=== PATIENT | female | born 1995 | race Caucasian/White ===

== ENCOUNTER → 2016-12-06 21:22 | Observation (INO) ==
--- NOTE | 2016-12-06 17:57 | OB/GYN Progress Note ---
Date of Encounter: 12/06/16 Time of Encounter: 17:55 - Assessment and Plan (1) 38 weeks gestation of Current Visit: Yes Status: Acute (2) Back pain affecting in third trimester Current Visit: Yes Status: Acute TTP throughout entire back. Suspect musculoskeletal discomfort of . Will repeat SVE and await UA. (3) Decreased movement affecting management of mother, antepartum Current Visit: Yes Status: Acute NST reactive. Qualifiers: Fetus number: single or unspecified fetus Qualified Code(s): O36.8190 - Decreased movements, unspecified trimester, not applicable or unspecified (4) NST (non-stress test) reactive Current Visit: Yes Status: Acute Subjective - Subjective Interval history: 21 year-old presenting with c/o decreased movement, back pain, cramping, and headache. She reports she just doesn't feel well today. She reports worsening contractions since arrival today. She does now feel some movement. Antepartum ROS: contractions, no loss of fluid, no vaginal bleeding, no movement normal Objective - Vital Signs Vital Signs: Intake and Output 12/06/16 12/06/16 12/06/16 07:59 15:59 23:59 Other: Weight 76.9 kg Patient Weight 12/06/16 23:59 Weight 76.9 kg - Exam FHR: category 1 FHR comments: Reactive NST Auscultation: bilateral: normal Abdomen: Present: soft, gravid Uterus: Absent: tenderness
== END | disposition home or self-care (01) ==
LOC: 1NENULAB
PROVIDERS: ADMIT Registered Nurse; ATTEND Registered Nurse

== ENCOUNTER 2016-12-10 12:17 | Inpatient (IN) ==
[~2016-12-10 12:17] MED LIST: Famotidine 20 MG/2 ML VIAL IVP PRN; Metoclopramide 10 MG/2 ML VIAL IVP PRN; Naloxone 0.4 MG/ML INJ IVP PRN; Ondansetron 4 MG/2 ML VIAL IVP PRN
[2016-12-10] MEDS ORDERED: Ringers Solution, Lactated 1,000 ML IVC SCH (12:30)
[2016-12-10 12:37] LABS: Basophils # 0.1 K/mcL (0.0-0.2); Basophils % 0.3 %; Eosinophils # 0.2 K/mcL (0.0-0.6); Eosinophils % 1.5 %; Hematocrit 32.7 % (35.3-44.9); Hemoglobin 11.1 g/dL (11.5-15.4); Immature Granulocytes % 1.5 % (0-4); Immature Platelets 8.7 % (1.1-6.1); Lymphocytes # 1.6 K/mcL (0.6-4.6); Lymphocytes % 10.9 %; Mean Corpuscular HGB Conc 33.9 g/dL (31.6-35.5); Mean Corpuscular Hemoglobin 29.1 pg (28.0-33.3); Mean Corpuscular Volume 85.8 fL (83.0-100.0); Mean Platelet Volume 11.2 fL (9.4-12.4); Monocytes % 6.6 %; Neutrophils # 11.3 K/mcL (1.6-8.9); Platelet Count 246 K/mcL (140-400); Red Blood Count 3.81 M/mcL (3.82-4.97); Segmented Neutrophils % 79.2 %
--- NOTE | 2016-12-10 13:54 | OB/GYN History & Physical ---
Date of Encounter: 12/10/16 Time of Encounter: 13:47 Assessment and Plan (1) 38 weeks gestation of Current visit: Yes Status: Acute Patient admitted for delivery for spontaneous rupture of membranes (2) Spontaneous rupture of membranes Current visit: Yes Status: Acute Admit for delivery Patient may have nubain or epidural for pain management if desires. History of Present Illness Chief complaint: Spontaneous rupture of membranes HPI: Ms. Ferrell is a 21 year old female at 38w5d presents to labor and delivery with Spontaneous rupture of membranes. Patient reports clear fluid denies VB. Patient reports +FM. Blood type: A Negative, Rubella: Immune, Hep B: Nonreactive, GBS: Negative Past Med Surg Social Fam HX - Past Medical History Source: patient Medical history: no medical history Psychiatric history: depression - Past Surgical History Surgical History: no surgical history - Social History Smoking Status: Never smoker Smokeless Tobacco Status: No Alcohol use: none Drug use: none Activity Level: Independent ambulation Recent Out of Country Travel Within the Last 8 Weeks: No Exposure or Possible Exposure to Illness During Travel: No - Family History Mother Living Status: Still Living Obstetrical History - Pregnancies : 2 Para: 1 Term: 1 : 0 Ab's: 0 Livin Medications and Allergies Pnv95/Iron Fum/Folic Acid [ Caplet] 1 each PO DAILY #30 tablet 04/28/16 [Rx] Allergies No Known Allergies Allergy (Verified 04/28/16 18:20) Review of System OB - Constitutional Constitutional ROS IM: no chills, no fever(s), no headache(s) - Cardiovascular Cardiovascular: no chest pain, no palpitations, no syncope - Respiratory Respiratory: no dyspnea - Gastrointestinal Gastrointestinal: no abdominal pain, no constipation, no cramping, no diarrhea, no heartburn, no nausea, no vomiting - Genitourinary Genitourinary: no abnormal vaginal bleeding, no dysuria, no flank pain, no urinary frequency, no urinary hesitancy, no urinary urgency, no vaginal odor, no vaginal pruritis Exam - Constitutional Constitutional: well developed, well nourished, no acute distress, average body habitus - HEENT HEENT: Normocephaly, Mucus Membranes Moist - Neck Neck exam: full ROM, supple - Lungs Respiratory exam: CTAB - Cardiovascular Cardiovascular exam: RRR, +S1, +S2 - Abdomen Abdomen: Present: bowel sounds normal, gravid, non tender - Extremities Extremities exam: full ROM, normal capillary refill, normal inspection Deep Tendon Reflex Grade: 2+ Normal - Vagina Vagina: Present: normal moisture - Cervix Dilation: 5 Effacement: 80 Station: -1 - Uterus Uterus exam: Present: normal size, normal contour - Anus/Rectum Anus/Rectum: Present: normal perianal skin (FHR 130 bpm moderate variability + 15x15 accels no decels noted. Contractions 4-5 min apart. Cat. 1 tracing) Results Result Diagrams: 12/10/16 12:23 Abnormal lab results WBC 14.3 K/mcL (4.3-11.1) H 12/10/16 12:23 RBC 3.81 M/mcL (3.82-4.97) L 12/10/16 12:23 Hgb 11.1 g/dL (11.5-15.4) L 12/10/16 12:23 Hct 32.7 % (35.3-44.9) L 12/10/16 12:23 Neutrophils # 11.3 K/mcL (1.6-8.9) H 12/10/16 12:23 Immature Plt Fraction 8.7 % (1.1-6.1) H 12/10/16 12:23 All other labs normal. - VTE Reasons for not Prescribing Prophylaxis: Treatment not Indicated - Low risk for VTE
[2016-12-10] MEDS ORDERED: miSOPROStol 100 MCG TABLET PO STA (15:45)
[2016-12-10] MEDS ORDERED: Oxytocin 20 units/ LR 1000 mL 20 UNIT/1,000 ML BAG IVC SCH (20:15)
--- NOTE | 2016-12-10 20:18 | OB Labor Progress Note ---
Date of Encounter: 12/10/16 Time of Encounter: 20:16 Labor Progress Note - Subjective Subjective: Patient sitting in bed denies any pain at this time. Discussed POC with patient. Patient denies any questions or concerns. - Cervix Cervix: 5/80/-1 - Heart Tones Heart Tones: 125 bpm moderate variability +15x15 accels no decels noted. - [place]: irregular - Interventions Interventions: SVE, Forebag ruptured at this time. small amount of clear fluid noted. - Plan Plan: Will start Pitocin for augmentation. Continue labor management. Patient may have nubain or epidural for pain management if desires.
[2016-12-10] MEDS ORDERED: Oxytocin 20 units/ LR 1000 mL 20 UNIT/1,000 ML BAG IVC ONE (20:19)
[2016-12-10] MEDS ORDERED: Epidural Premix (fent/bupiv) 110 ML EP ONE (21:27)
[2016-12-10] MEDS ORDERED: Epidural Premix (fent/bupiv) 110 ML EP SCH (21:30)
[2016-12-10] MEDS ORDERED: Lidocaine -MPF 1% 2 ML VIAL ONE (21:52)
--- NOTE | 2016-12-10 23:12 | Anesthesia Evaluation PreOp ---
Date of Encounter: 12/10/16 Time of Encounter: 21:30 - Past History Planned Operation: CATINA Cardiac History: Denies any Significant Hx Pulmonary History: Denies Any Significant HX GRADER MEAT History: Denies Any Significant HX Other Medical History: Denies Any Significant HX Anesthesia History: No Prior Anesthetic Complications : Yes Test: Positive Alcohol Use: none Drug use: none Medications and Allergies Pnv95/Iron Fum/Folic Acid [ Caplet] 1 each PO DAILY #30 tablet 04/28/16 [Rx] Allergies No Known Allergies Allergy (Verified 04/28/16 18:20) - Meds/Allergy Pre-op Review Medications Reviewed: Yes Allergies Reviewed: Yes Beta Blockers on Current Med List: No Anesthesia Results - Labs 12/10/16 12:23 Anesthesia Exam Height: 63 Weight: 75.6 NPO (# of Hours): MN Pain Scale: 6 - HEENT Pupil (Motor): Pupils equal Mallampati: II Teeth: Normal Oral Opening: Greater than 3 - GRADER MEAT LOC: Oriented GRADER MEAT Motor: Normal RUE, Normal LUE, Normal RLE, Normal LLE, Normal Face GRADER MEAT Sensory: Normal: RUE, LUE, RLE, LLE, Face - Cardiac Rhythm: Regular Murmur: None JVD: No Carotid Bruit: No - Pulmonary Breath Sounds: bilateral Clear Respiratory Effort: Symmetrical Anesthesia Assess/Plan ASA Score: 2 Modified Naomi Scale for Level of Consciousness: Cooperative, oriented, and tranquil Anesthetic Plan: Regional Autologous Blood: No Monitoring Plan: Standard Monitors
--- NOTE | 2016-12-10 23:17 | Anesthesia Procedures ---
Date of Encounter: 12/10/16 Time of Encounter: 21:30 Procedures: Anesthesia - Epidural/Spinal Patient ID/Chart reviewed: Yes Patient examined: Yes OB Eval: Gestational age: 38.5 OB Eval: : 2 OB Eval: Hx Para: 1 OB Eval: Dilated at (cm): 6 OB Eval: Contractions: Non-stressed pattern Consent Obtained: Yes Supplemental Oxygen: None/Room Air Site Prep: Aseptic Technique, Sterile prep and drape, Povidone-Iodine 1% Patient position: upright Local Anesthetic: Lidocaine 1% Amount of Local Anesthetic used: 3 Touhy Needle Gauge: 18 Touhy Needle Depth (cm): 7 Catheter Depth at Skin (cm): 12 Test Dose (1.5% Lido + Epi): Volume given (mls): 3 Test Dose Result: Negative Infusion Med: 0.125% Bupivacaine w/ 2 mcg/ml Fentanyl Infusion Rate (mls/hr): [address]: Tegaderm, Tape Interspace Used: L3-L4 Loss of Resistance (SOLO): Yes Blood: No CSF: No Paresthesia: No Procedure: MODERATE DIFFICULTY PLACING EPIDURAL CATHETER, PLACED AFTER TWO ATTEMPTS, CATHETER THREAD WITH EASE. NEGATIVE TEST DOSE, CALLED TO ROOM PATIENT CRYING STATES NO RELIEF, PLACED IN SITTING POSITION CATHETER PULLED, TIP INTACT, L4 SPACE WITH NO SUCCESS X 2 ATTEMPTS, PATIENT STATES SHE HAS TO HAVE A BOWEL MOVEMENT, PT CHECKED PER RN, DIALATED 8-9, INTRATHECAL BUPIVICAINE 0.75% 0.8ML GIVEN, NO HEME, TOLERATED WELL. Vitals + FHT's: STABLE THROUGOUT PROCEDURE SEE NURSING
--- NOTE | 2016-12-11 01:09 | OB/GYN Procedure Note ---
Delivery - Delivery Date: 12/11/16 Provider: Donna Arguello Intrapartum events: none Delivery induction: none Delivery augmentation: pitocin Delivery monitor: external FHT, external uterine Anesthesia: other (spinal) Estimated Blood Loss: 100 - (s) A Infant Delivery Date: 12/11/16 Delivery Time: 00:48 Presentation: vertex Position: [place] Route of delivery: Gender: Male Viability: Viable Pounds: 7 Ounces: 8 Weight Gram: 3395 kg at 1 minute: 8 at 5 mins: 9 Shoulder Dystocia: not encountered Specimens collected: cord blood Placenta: spontaneous Cord: 3 umbilical vessels - Repair Episiotomy: none Laceration Description: Perineal - 1st Degree (repaired with 3-0 vicryl) - Complications Delivery complications: none - Disposition Mom disposition: stable in LDR [place] disposition: stable in LDR - Comments Comments: Called to LDR patient complete and +2 station. Under maternal effort patient spontaneously delivered a viable male . No nuchal, shoulder dystocia or meconium was noted. Infant was placed on maternal abdomen. A first degree perineal laceration noted and repaired with 3-0 vicryl. Cord was clamped and cut after pulsation ceased. Placenta delivered spontaneously and intact. Pericare provided. Infant skin to skin. Both mother and stable in LDR for 2 hour recovery.
[2016-12-11] MEDS ORDERED: Ibuprofen 600 MG TABLET PO ONE (01:12)
[2016-12-11] MEDS ORDERED: Oxytocin 20 units/ LR 1000 mL 20 UNIT/1,000 ML BAG IVC SCH (03:21)
[2016-12-11] MEDS ORDERED: *HR* HYDROcodone/Acet 5/325 mg TABLET PO PRN (03:21)
[2016-12-11] MEDS ORDERED: Ibuprofen 600 MG TABLET PO PRN (03:21)
[2016-12-11] MEDS ORDERED: Benzocaine/Menthol 56 GM AEROSOL SPRAY TP PRN (03:21)
[2016-12-11] MEDS: Acetaminophen 325 MG TABLET PO PRN ×2 (04:30→12:43)
[2016-12-11] MEDS: Prenatal Vit/FA 1 EACH TABLET PO SCH (09:18)
[2016-12-11] MEDS ORDERED: Rho Immune Globulin 1,500 UNIT SYRINGE IM ONE (18:31)
[2016-12-12] MEDS: Prenatal Vit/FA 1 EACH TABLET PO SCH (08:14)
--- NOTE | 2016-12-12 09:01 | Discharge Summary ---
Date of Encounter: 12/12/16 Time of Encounter: 08:59 - Discharge Diagnosis (1) Vaginal delivery Priority: Primary Status: Acute Comments: Pt meeting all milestones, pain managed on po pain medication ,but has continuing back pain (multiple epidural attempts). no issues with bowel and bladder, desires discharge (2) 38 weeks gestation of Priority: Primary Status: Acute - Discharge Medications Prescriptions: Ibuprofen [Motrin] 600 mg PO Q6HR PRN #60 tab PRN Reason: Cramping Docusate [Colace] 100 mg PO BID #60 Home Medications: Pnv95/Iron Fum/Folic Acid [ Caplet] 1 each PO DAILY #30 tablet 04/28/16 [Rx] Acetaminophen [Tylenol] 650 mg PO Q6HR PRN tab 12/12/16 [Rx] Benzocaine/Menthol [place] [Dermoplast [place]] 1 appl TP QID PRN aerosol 12/12/16 [Rx] Calcium Carbonate [Tums] 1,000 mg PO Q4HR PRN 12/12/16 [Rx] Docusate [Colace] 100 mg PO BID #60 12/12/16 [Rx] Ibuprofen [Motrin] 600 mg PO Q6HR PRN #60 tab 12/12/16 [Rx] Vit/FA 1 each PO DAILY tab 12/12/16 [Rx] Allergies/Adverse Reactions: Allergies No Known Allergies Allergy (Verified 04/28/16 18:20) Data Procedures and tests throughout hospitalization: Laboratory Tests 12/10/16 12/11/16 12:23 01:50 WBC 14.3 H RBC 3.81 L Hgb 11.1 L Hct 32.7 L MCV 85.8 MCH 29.1 MCHC 33.9 RDW 14.0 Plt Count 246 MPV 11.2 Immature Gran % 1.5 Seg Neutrophils % 79.2 Lymphocytes % 10.9 Monocytes % 6.6 Eosinophils % 1.5 Basophils % 0.3 Neutrophils # 11.3 H Lymphocytes # 1.6 Monocytes # 1.0 Eosinophils # 0.2 Basophils # 0.1 Immature Plt Fraction 8.7 H Screen NEGATIVE Baby's Blood Type A RH POSITIVE Mother's Blood Type A RH NEGATIVE Rhogam Indicated YES Rhogam Req for Mother 1 Date of admission: 12/10/16 12:17 Primary care physician: PCP NONE Discharging clinician: Bell Ruiz Anticipated date of discharge: 12/12/16 - Patient Status Disposition: Home, Self-Care Condition: Good Functional capacity at discharge: independent ambulation Overall status at discharge: patient is back to baseline - Discharge Instructions Follow Up With: NONE,PCP [Primary Care Provider] - Donna Arguello, CNM [Non-Partnered Physician] - - Diet and Activity Activity: resume usual activities as tolerated Diet: regular diet Hospital Course Reason for admission: IUP at term Delivery: Episiotomy: none Other procedures: none complications: none Discharge diagnosis: IUP at term delivered baby: male Hospital course: Delivery - Delivery Date: 12/11/16 Provider: Donna Arguello Intrapartum events: none Delivery induction: none Delivery augmentation: pitocin Delivery monitor: external FHT, external uterine Anesthesia: other (spinal) Estimated Blood Loss: 100 - (s) Infant A Infant Delivery Date: 12/11/16 Delivery Time: 00:48 Presentation: vertex Position: [place] Route of delivery: Gender: Male Viability: Viable Pounds: 7 Ounces: 8 Weight Gram: 3395 kg at 1 minute: 8 at 5 mins: 9 Shoulder Dystocia: not encountered Specimens collected: cord blood Placenta: spontaneous Cord: 3 umbilical vessels - Repair Episiotomy: none Laceration Description: Perineal - 1st Degree (repaired with 3-0 vicryl) - Complications Delivery complications: none - Disposition Mom disposition: stable in PP and appropriate for discharge Time Attestation: Total time spent providing and/or coordinating discharge services: Time Spent: Less than 30 minutes Exam - Constitutional Vitals: Temp Pulse Resp BP Pulse Ox 97.7 F 80 16 110/70 97 12/11/16 19:45 12/11/16 19:45 12/11/16 19:45 12/11/16 19:45 12/11/16 19:45 General appearance IM: A&O X 3 - Respiratory Respiratory exam: Present: CTAB - Cardiovascular Cardiovascular exam IM: Present: RRR - GI/Abdominal GI/Abdominal exam IM: normal bowel sounds, soft - Uterine Tone: Firm Uterus Position: 1 Finger Below Umbilicus - Extremities Exam Extremities exam IM: Present: normal capillary refill, normal inspection - Neurological Exam Neurological exam: normal gait, oriented X3 - Psychiatric Additional comments: reports good mood.
[2016-12-12 10:43] VITALS: BP 109/67
== END 2016-12-12 15:32 | disposition home or self-care (01) | DRG 560 ==
LOC: 1NENULAB → 1NENUOBS 12-11 03:20
PROVIDERS: ADMIT Advanced Practice Midwife; ATTEND Advanced Practice Midwife